=== PATIENT | female | born 1970 | race Caucasian/White ===

== ENCOUNTER 2017-11-24 21:32 | Emergency (ER) | payer SELFPAY ==
[~2017-11-24] VITALS: Ht 175.3 cm; Wt 70.0 kg
[~2017-11-24 21:32] MED LIST: VIST25CA PO; ZIPR1CAP27 PO
[2017-11-24 22:02] VITALS: BP 129/60; PULSE 66; RESP 16; TEMP 98.2; O2SAT 100
[2017-11-24] MEDS ORDERED: BUSP15TA PO (22:08)
[2017-11-24] MEDS ORDERED: OXCA300T PO (22:08)
[2017-11-24] MEDS ORDERED: ZIPR1CAP10 PO (22:08)
[2017-11-24] MEDS ORDERED: KETOROLAC TROMETHAMINE 30 MG/ML (IVP) VIAL IV PUSH ONE (23:30)
[2017-11-25 00:15] LABS: AUTOMATED NEUTROPHIL # 6.6 TH/MM3 (1.8-7.7); BASOPHIL % 0.3 % (0.0-2.0); EOSINOPHIL # 0.2 TH/MM3 (0-0.4); EOSINOPHIL % 2.3 % (0.0-4.0); HEMATOCRIT 44.4 % (35.0-46.0); HEMOGLOBIN 15.5 GM/DL (11.6-15.3); LYMPH % 20.2 % (9.0-44.0); MEAN CELL VOLUME 88.7 FL (80.0-100.0); MEAN CORPUSCULAR HEMOGLOBIN 30.9 PG (27.0-34.0); MEAN CORPUSCULAR HGB CONC 34.9 % (32.0-36.0); MEAN PLATELET VOLUME 8.1 FL (7.0-11.0); MONO % 9.6 % (0.0-8.0); MONOCYTE # 0.9 TH/MM3 (0-0.9); NEUT % 67.6 % (16.0-70.0); PLATELET COUNT 268 TH/MM3 (150-450); RED CELL DISTRIBUTION WIDTH 13.6 % (11.6-17.2); WHITE BLOOD COUNT 9.7 TH/MM3 (4.0-11.0)
--- NOTE | 2017-11-25 00:15 | PD ---
HPI Chief Complaint: Abdominal Pain Time Seen by Provider: 22:21 Travel History International Travel<30 days: No Contact w/Intl Traveler<30days: No Traveled to known affect area: No History of Present Illness HPI 47-year-old female who said she just recently was out of nursing home she was in incarcerated for drug abuse she says now she is here for feeling sick she has not seen a doctor since she got out of nursing home and now she says she is feeling sick nauseous abdomen pain she thinks she is confused. She has multiple medical complaints but only abdominal pain and possible liver failure are the emergency complaints I feel need to be address in ER , I also send ammionia levels , SHe complains of diffuse abdo pain and confusion for over months, " tired of feeling sick" PFSH Past Medical History Bipolar Disorder: Yes Depression: Yes Diminished Hearing: No Diverticulitis: Yes Gastrointestinal Disorders: Yes (GASTRITIS,DIVERTICULITIS,HEP C) Hepatitis: Yes ("c") Insomnia: Yes Psychiatric: Yes (PTSD) Immunizations Current: Yes Influenza Vaccination: No ?: Not : 5 Para: 4 Miscarriage: 1 : 0 Tubal Ligation: Yes Past Surgical History Genitourinary Surgery: Yes (BLADDER TUCK) Hysterectomy: Yes (2003) Other Surgery: Yes (BREAST AUGMENTATION) Social History Alcohol Use: No Tobacco Use: Yes (PACK EVERY 3 DAYS) Substance Use: Yes (IV MORPHINE) Allergies-Medications (Allergen,Severity, Reaction): Coded Allergies: No Known Allergies (Verified Adverse Reaction, Unknown, 11/24/17) Reported Meds & Prescriptions Reported Meds & Active Scripts Active Protonix (Pantoprazole Sodium) 40 Mg Tab 40 Mg PO DAILY Zofran Odt (Ondansetron Odt) 4 Mg Tab 4 Mg SL Q6HR PRN Reported Buspirone (Buspirone HCl) 15 Mg Tab 15 Mg PO TID Ziprasidone 60 Mg Cap 120 Mg PO HS Oxcarbazepine 300 Mg Tab 300 Mg PO BID Review of Systems Except as stated in HPI: all other systems reviewed are Neg General / Constitutional: Positive: Fever Respiratory: Positive: Shortness of Breath Gastrointestinal: Positive: Nausea, Abdominal Pain Physical Exam Narrative GENERAL: Nontoxic appearing awake alert SKIN: Warm and dry. HEAD: Atraumatic. Normocephalic. EYES: Pupils equal and round. No scleral icterus. No injection or drainage. ENT: No nasal bleeding or discharge. Mucous membranes pink and moist. NECK: Trachea midline. No JVD. CARDIOVASCULAR: Regular rate and rhythm. RESPIRATORY: No accessory muscle use. Clear to auscultation. Breath sounds equal bilaterally. GASTROINTESTINAL: Abdomen mild tenderness the right upper quadrant NEUROLOGICAL: Awake and alert. No obvious cranial nerve deficits. Motor grossly within normal limits. Five out of 5 muscle strength in the arms and legs. Normal speech. PSYCHIATRIC: Appropriate mood and affect; insight and judgment normal. Data Data Last Documented VS Vital Signs Date Time Temp Pulse Resp B/P (MAP) Pulse Ox O2 Delivery O2 Flow Rate FiO2 11/25/17 06:31 11/25/17 06:30 88 16 100 Room Air 11/24/17 22:02 98.2 Orders Orders Complete Blood Count With Diff (11/24/17 23:06) Comprehensive Metabolic Panel (11/24/17 23:06) Creatine Kinase (Cpk) (11/24/17 23:06) Lipase (11/24/17 23:06) Urinalysis - C+S If Indicated (11/24/17 23:06) Chest, Single Ap (11/24/17 23:06) Alcohol (Ethanol) (11/24/17 23:06) Ketorolac Inj (Toradol Inj) (11/24/17 23:30) Ed Discharge Order (11/25/17 06:10) Labs Laboratory Tests Test 11/24/17 23:57 White Blood Count 9.7 TH/MM3 Red Blood Count 5.00 MIL/MM3 Hemoglobin 15.5 GM/DL Hematocrit 44.4 % Mean Corpuscular Volume 88.7 FL Mean Corpuscular Hemoglobin 30.9 PG Mean Corpuscular Hemoglobin Concent 34.9 % Red Cell Distribution Width 13.6 % Platelet Count 268 TH/MM3 Mean Platelet Volume 8.1 FL Neutrophils (%) (Auto) 67.6 % Lymphocytes (%) (Auto) 20.2 % Monocytes (%) (Auto) 9.6 % Eosinophils (%) (Auto) 2.3 % Basophils (%) (Auto) 0.3 % Neutrophils # (Auto) 6.6 TH/MM3 Lymphocytes # (Auto) 2.0 TH/MM3 Monocytes # (Auto) 0.9 TH/MM3 Eosinophils # (Auto) 0.2 TH/MM3 Basophils # (Auto) 0.0 TH/MM3 CBC Comment DIFF FINAL Differential Comment Urine Color LIGHT-YELLOW Urine Turbidity HAZY Urine pH 7.5 Urine Specific [place] 1.010 Urine Protein NEG mg/dL Urine Glucose (UA) NEG mg/dL Urine Ketones NEG mg/dL Urine Occult Blood NEG Urine Nitrite NEG Urine Bilirubin NEG Urine Urobilinogen LESS THAN 2.0 MG/DL Urine Leukocyte Esterase NEG Urine WBC 1 /hpf Urine Squamous Epithelial Cells 7 /hpf Urine Bacteria RARE /hpf Microscopic Urinalysis Comment CULT NOT INDICATED Blood Urea Nitrogen 5 MG/DL Creatinine 0.74 MG/DL Random Glucose 78 MG/DL Total Protein 8.4 GM/DL Albumin 4.0 GM/DL Calcium Level 9.4 MG/DL Alkaline Phosphatase 102 U/L Aspartate Amino Transf (AST/SGOT) 62 U/L Alanine Aminotransferase (ALT/SGPT) 115 U/L Total Bilirubin 0.6 MG/DL Sodium Level 138 MEQ/L Potassium Level 3.5 MEQ/L Chloride Level 105 MEQ/L Carbon Dioxide Level 24.6 MEQ/L Anion Gap 8 MEQ/L Estimat Glomerular Filtration Rate 84 ML/MIN Total Creatine Kinase 68 U/L Lipase 123 U/L Ethyl Alcohol Level LESS THAN 3 MG/DL [facility] Medical Decision Making Medical Screen Exam Complete: Yes Emergency Medical Condition: Yes Differential Diagnosis liver disease GB disease cirrhosis , ascites, vs viral illness vs influenza vs general malaise, depression other Narrative Course labs do not indicate liver failure and vitals remain normal , URINE NEGATIVE AND LFTS minimally elevated , no need for further ER eval nor admission follow up as outpt , RX for zofran and protonix given Diagnosis Primary Impression: Abdominal pain Qualified Codes: R10.84 - Generalized abdominal pain Patient Instructions: Acute Abdominal Pain (ED), General Instructions Scripts Pantoprazole (Protonix) 40 Mg Tab 40 MG PO DAILY for Reflux, #30 TAB 0 Refills Prov: Shane Marie MD 11/25/17 Ondansetron Odt (Zofran Odt) 4 Mg Tab 4 MG SL Q6HR Y for Nausea/Vomiting, #10 TAB 0 Refills Prov: Shane Marie MD 11/25/17 Disposition: 01 DISCHARGE HOME Condition: Good Shane Marie MD November 25, 2017 00:15
--- NOTE | 2017-11-25 00:16 | RADRPT ---
EXAM DATE/TIME: 11/24/2017 23:38 [facility] COMPARISON: CHEST SINGLE AP, December 22, 2015, 19:16. INDICATIONS : Shortness of breath and fever. MEDICAL HISTORY : Gastritis. Diverticulitis. Hep C. SURGICAL HISTORY : Breast augmentation. Bladder tuck. Neck surgery. Tubal ligation. Hysterectomy. ENCOUNTER: Initial ACUITY: 3 weeks PAIN SCORE: 0/10 LOCATION: Bilateral chest FINDINGS: A single view of the chest demonstrates the lungs to be symmetrically aerated without evidence of mas s, infiltrate or effusion. The lungs are hyperinflated bilaterally. The cardiomediastinal contours a re unremarkable. Old trauma involving the right clavicle. Cervical spinal fusion plate. CONCLUSION: Hyperinflation suggesting COPD. No acute infiltrate or effusion. Julio Casiano Jr., MD on November 25, 2017 at 0:14 Board Certified Radiologist. This report was verified electronically.
[2017-11-25 00:17] VITALS: BP 116/55; PULSE 70; RESP 16; O2SAT 98
[2017-11-25 00:23] LABS: BACTERIA, URINE RARE /hpf; BILIRUBIN, URINE NEG (NEG); BLOOD, URINE NEG (NEG); GLUCOSE,URINE NEG (NEG); KETONE, URINE NEG (NEG); NITRITE,URINE NEG (NEG); PH, URINE 7.5 (5.0-8.5); SQUAMOUS EPITHELIAL CELL URINE 7 /hpf (0-5); URINE COLOR LIGHT-YELLOW (YELLW/STRAW); URINE LEUKOCYTE ESTERASE NEG (NEG)
[2017-11-25 00:27] LABS: AST (GOT) 62 U/L (15-37); BICARBONATE 24.6 MEQ/L (21.0-32.0); BLOOD UREA NITROGEN 5 MG/DL (7-18); CALCIUM 9.4 MG/DL (8.5-10.1); CHLORIDE 105 MEQ/L (98-107); CREATININE 0.74 MG/DL (0.50-1.00); GLOMERULAR FILTRATION RATE 84 ML/MIN (>89); GLUCOSE,RANDOM 78 MG/DL (74-106); SODIUM (NA) 138 MEQ/L (136-145)
[2017-11-25 00:28] LABS: ALT (GPT) 115 U/L (10-53)
[2017-11-25 00:31] LABS: ALKALINE PHOSPHATASE 102 U/L (45-117); TOTAL BILIRUBIN ADULT 0.6 MG/DL (0.2-1.0); TOTAL PROTEIN 8.4 GM/DL (6.4-8.2)
[2017-11-25 03:30] VITALS: BP 124/68; PULSE 80; RESP 16; O2SAT 100
[2017-11-25 06:30] VITALS: BP 132/74; PULSE 88; RESP 16; O2SAT 100
[2017-11-25] MEDS ORDERED: ZOFR4TAB3 SL (06:30)
[2017-11-25] MEDS ORDERED: PROT40TA PO (06:30)
== END 2017-11-25 06:37 | disposition home or self-care (01) ==
LOC: NEPE 21:32
DX: R10.84 Generalized abdominal pain (principal); F17.200 Nicotine dependence, unspecified, uncomplicated; F31.9 Bipolar disorder, unspecified; B19.20 Unspecified viral hepatitis C without hepatic coma; Z79.899 Other long term (current) drug therapy
CPT/HCPCS: 71045; 80053; 80307; 81001; 82550; 83690; 85025; 96374; 99284; J1885